=== PATIENT | male | born 2000 | race Caucasian/White ===

== ENCOUNTER 2021-05-17 16:39 | Emergency (ER) | payer SELFPAY ==
[2021-05-17 17:17] VITALS: BP 137/84; PULSE 99; TEMP 98; BMI 21.2
== END 2021-05-17 17:49 | disposition home or self-care (01) ==
LOC: JERFT 16:39 → JER 16:39 → JERFT 17:49
DX: L30.9 Dermatitis, unspecified (principal)
CPT/HCPCS: 99281-25

== ENCOUNTER 2023-12-14 18:37 | Emergency (ER) | payer BC ==
[2023-12-14 18:45] VITALS: BP 133/79; PULSE 80; RESP 19; TEMP 98.6; BMI 22.7
[2023-12-14] MEDS ORDERED: IBUPROFEN 600 MG TABLET (FP) PO ONE (19:12)
[2023-12-14] MEDS: IBUPROFEN 600 MG TABLET (FP) PO ONE (19:12)
== END 2023-12-14 19:14 | disposition home or self-care (01) ==
LOC: JERFT 18:37 → JER 18:37 → JERFT 19:14
PROC: 0H9QXZZ Drainage of Finger Nail, External Approach (ICD-10-PCS; principal; 2023-12-14)
DX: L03.011 Cellulitis of right finger (principal); L03.012 Cellulitis of left finger
CPT/HCPCS: 99283-25

== ENCOUNTER 2025-02-23 03:57 | Emergency (ER) | payer BC, OTHER ==
[2025-02-23 04:03] VITALS: TEMP 98.1; BMI 22.8
[2025-02-23] MEDS ORDERED: diphenhydrAMINE HCL 25 MG CAPSULE (FP) PO ONE (04:25)
[2025-02-23] MEDS ORDERED: DEXAMETHASONE 4 MG TABLET (FP) ONE (04:26)
[2025-02-23] MEDS: diphenhydrAMINE HCL 25 MG CAPSULE (FP) PO ONE (04:27)
[2025-02-23] MEDS: DEXAMETHASONE 4 MG TABLET (FP) PO ONE (04:27)
[2025-02-23 05:17] VITALS: BP 136/82; PULSE 72; RESP 16
== END 2025-02-23 05:30 | disposition home or self-care (01) ==
LOC: JER 03:57
DX: R22.0 Localized swelling, mass and lump, head (principal); T78.40XA Allergy, unspecified, initial encounter
CPT/HCPCS: 99283-25